=== PATIENT | male | born 1970 | race African-American/Black ===

== ENCOUNTER 2017-06-11 06:20 | Emergency (ER) | payer SELFPAY ==
[~2017-06-11] VITALS: Ht 182.9 cm; Wt 113.0 kg
[2017-06-11 06:33] VITALS: BP 140/86; PULSE 83; RESP 16; TEMP 98.1; O2SAT 95
--- NOTE | 2017-06-11 06:39 | PD ---
HPI Chief Complaint: Time Seen by Provider: 06:25 Travel History International Travel<30 days: No Contact w/Intl Traveler<30days: No Traveled to known affect area: No History of Present Illness HPI This is a middle-age black male who presents emergency Department under her act due to alcohol intoxication. The patient was found heavily intoxicated and unable to care for himself. Patient is very intoxicated here. History is unobtainable. He is handling his secretions. There is a hematoma to the right cheek with superficial laceration. He's maintaining blood pressure and saturation. He's in urine soaked clothes. PFSH Past Medical History Medical History: Unable to Obtain Tetanus Vaccination: Unknown Past Surgical History Surgical History: Unable to Obtain Social History Alcohol Use: Yes Tobacco Use: No Substance Use: Yes Review of Systems ROS Limitations: Intoxication Physical Exam Narrative GENERAL: Well-nourished, well-developed patient. Smells of EtOH and urine. Appears heavily intoxicated. SKIN: Warm and dry. Patient has a avulsion laceration to his right cheek measuring 6 mm. HEAD: Patient has a soft tissue contusion hematoma to the right cheek with a superficial laceration. EYES: No scleral icterus. No injection or drainage. ENT: No nasal drainage noted. Mucous membranes pink. Airway patent. Positive gag. NECK: Supple, trachea midline. Moves head freely without obvious discomfort. CARDIOVASCULAR: Regular rate and rhythm without murmurs, gallops, or rubs. RESPIRATORY: Breath sounds equal bilaterally. No accessory muscle use. GASTROINTESTINAL: Abdomen soft, non-tender, nondistended. EXTREMITIES: No cyanosis or edema. BACK: Nontender without obvious deformity. No CVA tenderness. NEURO: Patient is somnolent but response to noxious stimuli. [facility] Medical Decision Making Medical Screen Exam Complete: Yes Emergency Medical Condition: Yes Medical Record Reviewed: No Differential Diagnosis Differential diagnoses: Alcohol intoxication, substance abuse, electrolyte abnormality, malingering Narrative Course Due to the patient's somnolent presentation and evidence of trauma to the right cheek we will perform a CT scan of his head and neck rule out any trauma. We' ll perform basic electrolytes, CBC and alcohol. The oncoming PA will assume the patient's care and render their disposition. Akin Reid Jun 11, 2017 06:39
[2017-06-11 08:17] VITALS: BP 139/74; PULSE 80; RESP 14; O2SAT 96
--- NOTE | 2017-06-11 08:28 | RADRPT ---
EXAM DATE/TIME: 06/11/2017 08:06 [facility] COMPARISON: No previous studies available for comparison. INDICATIONS : Trauma. Found unresponsive in the road. ETOH. RADIATION DOSE: 42.18 CTDIvol (mGy) MEDICAL HISTORY : Non-responsive. SURGICAL HISTORY : Non-responsive. ENCOUNTER: Initial ACUITY: 1 day PAIN SCALE: Non-responsive LOCATION: cranial TECHNIQUE: Multiple contiguous axial images were obtained of the head. Using automated exposure control and adj ustment of the mA and/or kV according to patient size, radiation dose was kept as low as reasonably a chievable to obtain optimal diagnostic quality images. DICOM format image data is available electro nically for review and comparison. FINDINGS: CEREBRUM: The ventricles are normal for age. No evidence of midline shift, mass lesion, hemorrhage or acute in farction. No extra-axial fluid collections are seen. POSTERIOR FOSSA: The cerebellum and brainstem are intact. The 4th ventricle is midline. The cerebellopontine angle i s unremarkable. EXTRACRANIAL: The visualized portion of the orbits is intact. SKULL: The calvaria is intact. No evidence of skull fracture. CONCLUSION: 1. No acute intracranial abnormality. Brian Mireles MD on June 11, 2017 at 8:13 Board Certified Radiologist. This report was verified electronically.
--- NOTE | 2017-06-11 08:53 | RADRPT ---
EXAM DATE/TIME: 06/11/2017 08:06 [facility] COMPARISON: No previous studies available for comparison. INDICATIONS : Trauma. Found unresponsive in the road. ETOH. RADIATION DOSE: 21.45 CTDIvol (mGy) MEDICAL HISTORY : Non-responsive. SURGICAL HISTORY : Non-responsive. ENCOUNTER: Initial ACUITY: 1 day PAIN SCALE: Non-responsive LOCATION: neck TECHNIQUE: Volumetric scanning of the cervical spine was performed. Multiplanar reconstructions i n the sagittal, coronal and oblique axial planes were performed. Using automated exposure control a nd adjustment of the mA and/or kV according to patient size, radiation dose was kept as low as reason ably achievable to obtain optimal diagnostic quality images. DICOM format image data is available e lectronically for review and comparison. FINDINGS: There is exaggerated cervical lordosis centered at C5-7. Minimal, less than 2 mm, retrolisthesis of C 5 on C6. There is degenerative spondylosis at this level with disc space narrowing and osteophyte for mation. Vertebral body heights are maintained. Osseous structures are intact without evidence for acu te bony fracture. Dens is intact. There is a normal C1-2 relationship. Facets are normally aligned. T here is no significant prevertebral soft tissue hematoma. There is a partially imaged subpleural left apical largely cystic lesion although there is questionable wall thickening suggesting a cavity near the extreme apex. CONCLUSION: 1. Exaggerated cervical lordosis with minimal, less than 2 mm, retrolisthesis of C5 on C6 centered ab out degenerative spondylosis of the lower lumbar spine. Findings are likely degenerative. Consider fl exion-extension views if there is clinical concern regarding ligamentous instability. 2. Partially imaged subpleural left apical predominately cystic lung lesion with questionable wall t hickening near the apex. Therefore, a cavitary lesion cannot be excluded at the apex. [facility] examination. 3. No acute cervical fracture. Brian Mireles MD on June 11, 2017 at 8:40 Board Certified Radiologist. This report was verified electronically.
--- NOTE | 2017-06-11 09:11 | PD ---
Physical Exam Date Seen by Provider: Jun 11, 2017 Narrative I resumed care from LAURYN Palma. Pt came to the emergency department intoxicated with injuries to the head and unobtainable history. I received a phone call from the radiologist, Dr. Capps, who stated he was concerned about a lesion in the apex of the lungs. States that the lesion is likely benign however, because of patient's history and presentation, he recommended respiratory precautions. Stated that the lesion was a possible cavitary lesion recommended a CT of the chest. Patient was placed in respiratory precautions. CT chest- area of concern demonstrated a bleb. Resp precautions lifted. Labs- positive for EtOH. Otherwise stable. I spoke with the nurses on duty at the time and they stated he was able to get up and walk around to use the bathroom without difficulty during the visit. Pt came in as a 'Johndoe' because he was not able to tell the staff a name. Pt was in the ED an extended amount of time because of a delayed imaging time and follow up studies required additional precautions for concern of pulmonary tuberculosis. I discussed with the patient the findings and patient was still reluctant to leave. Patient is stable to be discharged after an evaluation of his gait. Pt was advised to follow up with a primary care physician for the chest finding. Data Data Last Documented VS Vital Signs Date Time Temp Pulse Resp B/P (MAP) Pulse Ox O2 Delivery O2 Flow Rate FiO2 06/11/17 14:24 06/11/17 12:09 63 15 96 Room Air 06/11/17 06:[address] Brain W/O Iv Contrast(Rout) (06/11/17 06:39) Ct Cerv Spine W/O Contrast (06/11/17 06:39) Complete Blood Count With Diff (06/11/17 06:39) Basic Metabolic Panel (Bmp) (06/11/17 06:39) Alcohol (Ethanol) (06/11/17 06:39) Ct Thorax/ Chest W Iv Contrast (06/11/17 ) Isolation 08,20 (06/11/17 09:06) Iohexol 350 Inj (Omnipaque 350 Inj) (06/11/17 13:00) Ed Discharge Order (06/11/17 13:52) Labs Laboratory Tests Test 06/11/17 10:05 White Blood Count 6.8 TH/MM3 Red Blood Count 6.35 MIL/MM3 Hemoglobin 14.7 GM/DL Hematocrit 45.4 % Mean Corpuscular Volume 71.5 FL Mean Corpuscular Hemoglobin 23.1 PG Mean Corpuscular Hemoglobin Concent 32.3 % Red Cell Distribution Width 14.4 % Platelet Count 227 TH/MM3 Mean Platelet Volume 7.0 FL Neutrophils (%) (Auto) 53.2 % Lymphocytes (%) (Auto) 39.1 % Monocytes (%) (Auto) 6.2 % Eosinophils (%) (Auto) 1.3 % Basophils (%) (Auto) 0.2 % Neutrophils # (Auto) 3.6 TH/MM3 Lymphocytes # (Auto) 2.7 TH/MM3 Monocytes # (Auto) 0.4 TH/MM3 Eosinophils # (Auto) 0.1 TH/MM3 Basophils # (Auto) 0.0 TH/MM3 CBC Comment DIFF FINAL Differential Comment Blood Urea Nitrogen 7 MG/DL Creatinine 0.99 MG/DL Random Glucose 100 MG/DL Calcium Level 8.9 MG/DL Sodium Level 144 MEQ/L Potassium Level 3.8 MEQ/L Chloride Level 110 MEQ/L Carbon Dioxide Level 26.1 MEQ/L Anion Gap 8 MEQ/L Estimat Glomerular Filtration Rate 65 ML/MIN Ethyl Alcohol Level 224 MG/DL MDM Supervised Visit with MARTY: Yes Diagnosis Primary Impression: Lung blebs Additional Impression: Alcohol intoxication Qualified Codes: F10.929 - Alcohol use, unspecified with intoxication, unspecified Referrals: [facility] Additional Instruction: Recommend decreasing the alcohol consumption. Follow-up with primary care within 2-3 days. Scripts Unable to Obtain Active Prescriptions or Reported Meds Disposition: 01 DISCHARGE HOME Condition: Stable Parul Bhatia Jun 11, 2017 09:11
[2017-06-11 10:20] LABS: AUTOMATED NEUTROPHIL # 3.6 TH/MM3 (1.8-7.7); BASOPHIL % 0.2 % (0.0-2.0); EOSINOPHIL # 0.1 TH/MM3 (0-0.4); EOSINOPHIL % 1.3 % (0.0-4.0); HEMATOCRIT 45.4 % (39.0-51.0); HEMO FLAGS DIFF FINAL; LYMPH % 39.1 % (9.0-44.0); LYMPHOCYTE # 2.7 TH/MM3 (1.0-4.8); MEAN CELL VOLUME 71.5 FL (80.0-100.0); MEAN CORPUSCULAR HEMOGLOBIN 23.1 PG (27.0-34.0); MEAN CORPUSCULAR HGB CONC 32.3 % (32.0-36.0); MONO % 6.2 % (0.0-8.0); NEUT % 53.2 % (16.0-70.0); PLATELET COUNT 227 TH/MM3 (150-450); RED BLOOD COUNT 6.35 MIL/MM3 (4.50-5.90); RED CELL DISTRIBUTION WIDTH 14.4 % (11.6-17.2); WHITE BLOOD COUNT 6.8 TH/MM3 (4.0-11.0)
[2017-06-11 10:38] LABS: BICARBONATE 26.1 MEQ/L (21.0-32.0); POTASSIUM 3.8 MEQ/L (3.5-5.1)
[2017-06-11 12:09] VITALS: BP 120/73; PULSE 63; RESP 15; O2SAT 96
[2017-06-11] MEDS ORDERED: IOHEXOL 350 MG/ML 10 ML VIAL (for RAD DIAG) IVCONTRAST ONE (13:00)
--- NOTE | 2017-06-11 13:25 | RADRPT ---
EXAM DATE/TIME: 06/11/2017 12:29 [facility] COMPARISON: No previous studies available for comparison. INDICATIONS : Evaluate for a cavitary lesion sugested on cat scan of neck. IV CONTRAST: 62 cc Omnipaque 350 (iohexol) IV RADIATION DOSE: 8.96 CTDIvol (mGy) MEDICAL HISTORY : Non-responsive. SURGICAL HISTORY : Non-responsive. ENCOUNTER: Initial ACUITY: 1 day PAIN SCALE: Non-responsive LOCATION: chest TECHNIQUE: Volumetric scanning of the chest was performed. Using automated exposure control and adjustment of t he mA and/or kV according to patient size, radiation dose was kept as low as reasonably achievable to obtain optimal diagnostic quality images. DICOM format image data is available electronically for review and comparison. Follow-up recommendations for detected pulmonary nodules are based at a minimum on nodule size and pa tient risk factors according to Fleischner Society Guidelines. FINDINGS: LUNGS: There is no consolidation or pneumothorax. No concerning pulmonary nodule is visualized. Minimal robbie ateral dependent atelectatic changes. Small, 1.8 cm subpleural bleb medially in the left apex. PLEURA: There is no pleural thickening or pleural effusion. MEDIASTINUM: The heart and great vessels demonstrate no acute abnormality. There is no mediastinal or hilar lymph adenopathy. AXILLAE: Within normal limits. No lymphadenopathy. SKELETAL: Within normal limits for patient age. MISCELLANEOUS: The visualized upper abdominal organs demonstrate no acute abnormality. Mild symmetric gynecomastia. CONCLUSION: 1. No acute trauma/fracture. 2. Minimal, symmetric dependent atelectatic changes. Small 1.8 cm subpleural bleb medially in the lef t apex. 3. Mild, symmetric gynecomastia. Nik Loera MD on June 11, 2017 at 13:19 Board Certified Radiologist. This report was verified electronically.
== END 2017-06-11 14:33 | disposition home or self-care (01) ==
LOC: EDBD 06:20 → NEPD 06:20
DX: J43.9 Emphysema, unspecified (principal); Y90.7 Blood alcohol level of 200-239 mg/100 ml; S01.411A Laceration without foreign body of right cheek and temporomandibular area, initial encounter; X58.XXXA Exposure to other specified factors, initial encounter; Y92.410 Unspecified street and highway as the place of occurrence of the external cause
CPT/HCPCS: 70450; 71260; 72125; 80048; 80307; 85025; 99285; Q9967